=== PATIENT | male | born 1990 | race Hispanic/Latino ===

== ENCOUNTER 2022-03-11 11:00 | Emergency (ER) | payer OTHER ==
[~2022-03-11] VITALS: Ht 170.2 cm; Wt 80.3 kg
[2022-03-11 11:17] VITALS: BP 132/84
[2022-03-11] MEDS ORDERED: TETANUS/DIPHTHERIA TOXOID [ADULT] 0.5 ML VIAL IM ONE (11:30)
[2022-03-11] MEDS ORDERED: CEPHALEXIN 500 MG CAPSULE PO ONE (11:30)
[2022-03-11] MEDS ORDERED: CEPH500B PO (12:19)
== END 2022-03-11 12:30 | disposition home or self-care (01) ==
LOC: EDH 11:00
DX: S60.450A Superficial foreign body of right index finger, initial encounter (principal); X58.XXXA Exposure to other specified factors, initial encounter; Y93.89 Activity, other specified; Y92.89 Other specified places as the place of occurrence of the external cause; Y99.8 Other external cause status
CPT/HCPCS: 73140; 90471; 90714